=== PATIENT | female | born 1990 | race Caucasian/White ===

== ENCOUNTER 2021-12-25 16:41 | Outpatient (REF) | payer MEDICAID, SELFPAY ==
[2021-12-26 15:09] LABS: Chlamydia Result Negative (Negative); GC Result Negative (Negative)
== END 2021-12-25 16:42 | disposition home or self-care (01) ==
LOC: LBN 16:41
PROVIDERS: Visit Provider Obstetrics & Gynecology Gynecology
DX: R10.2 Pelvic and perineal pain (principal); Z11.3 Encounter for screening for infections with a predominantly sexual mode of transmission
CPT/HCPCS: 87491; 87591

== ENCOUNTER 2022-02-17 02:40 | Outpatient (CLI) | payer MEDICAID, SELFPAY ==
[2022-02-17 10:01] LABS: Source Nasal/Nares
[2022-02-17 10:57] LABS: HCT 43.5 % (36.0-46.0); HGB 14.8 g/dL (11.2-15.7); MCH 31.7 pg (27.0-33.0); MCV 93 fL (80-95); MPV 9.9 fL (8.0-11.0); Platelet Count 239 10^3/uL (130-400); RBC 4.67 10^6/uL (3.93-5.22); RDW 12.8 % (11.7-14.6); WBC 8.04 10^3/uL (4.4-10.8)
[2022-02-17 11:25] LABS: HCG Qual (Serum) Negative
[2022-02-17 11:33] LABS: ALT 31 U/L (14-59); AST 14 U/L (15-37); Albumin 3.9 g/dL (3.4-5.0); Alkaline Phosphatase 134 U/L (46-116); Anion Gap 11.4 mmol/L (3-11); BUN 14 mg/dL (7-18); Bilirubin, Total 0.2 mg/dL (0.2-1.0); CO2 26.6 mmol/L (21.0-32.0); CREATININE 0.8 mg/dL (0.55-1.02); Chloride 105 mmol/L (98-107); Glucose 106 mg/dL (74-106); Potassium 4.4 mmol/L (3.5-5.1); Sodium 143 mmol/L (136-145)
[2022-02-17 15:42] LABS: COVID-19 PCR Negative (Negative)
== END 2022-02-17 02:41 | disposition home or self-care (01) ==
LOC: LBO 02:40
PROVIDERS: Visit Provider Obstetrics & Gynecology Gynecology
DX: R10.2 Pelvic and perineal pain (principal); N94.19 Other specified dyspareunia; Z20.822 Contact with and (suspected) exposure to COVID-19; Z01.818 Encounter for other preprocedural examination; Z01.812 Encounter for preprocedural laboratory examination
CPT/HCPCS: 36415; 80053; 85027; 86850; 86900; 86901; 87635; 84703

== ENCOUNTER 2022-02-17 03:11 | Outpatient (CLI) | payer MEDICAID, SELFPAY | END 2022-02-17 03:12 | disposition home or self-care (01) | LOC: LBO 03:11 | PROVIDERS: Visit Provider Obstetrics & Gynecology Gynecology ==

== ENCOUNTER 2022-02-19 10:27 | Observation (INO) | payer MEDICAID, SELFPAY ==
[2022-02-19] VITALS (12 sets, daily range): BP systolic 85–128; BP diastolic 49–82; PULSE 77–97; RESP 11–20; TEMP 36.1–36.7; O2SAT 96–100; BMI 26.6
[2022-02-19] MEDS: Lactated Ringers 1,000 ML 125 ML IV ×2 (06:49→12:02)
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
[2022-02-19] MEDS: ceFAZolin 2 GM/50 ML BAG IVPB (07:46)
[2022-02-19] MEDS: Lidocaine 1% Multi-Dose W/EPI 1/100,000 50 ML VIAL (08:00)
--- NOTE | 2022-02-19 08:20 | UTER_PTH ---
PATIENT: Colten Paiz LOC: U#:[id number] AGE/SX: 31/F ROOM: RE02/19/[address]: Lizett Person : 1990 BED: A DIS: 02/19/2022 SPEC #: [id number] RECD: 02/19/22 12:58 STATUS: LINDA REQ #: [id number] CRISTOBAL: 02/19/22 08:[address]: Lizett Person DEPT: Surgical Specimen RECD BY: Bryanna Rubio ENTERED: 02/19/22 12:59 SP TYPE: UTER OTHR DR: Unknown,Unknown Tissues: 1 - SOFT TISSUE MISC (INC. LIPOMA) 2 - FALLOPIAN TUBE (OTHER) 3 - UTERUS W OR W/O OVARIES(NOT TUMOR/PROLAPSE) Procedures: GROSS AND MICRO LEVEL 4 GROSS AND MICRO LEVEL 5 Comments: [id number]
[2022-02-19 08:47] LABS: Bilirubin Negative (Negative); Blood Negative (Negative); Clarity Clear (Clear); Glucose Negative (Negative); Ketones Negative (Negative); Leukocyte Esterase Negative (Negative); Nitrite Negative (Negative); Urobilinogen 0.2 EU/dL (Up TO 0.2)
[2022-02-19 09:03] LABS: *AMPHETAMINES SCREEN URINE Negative (Negative); *BARBITURATES SCREEN URINE Negative (Negative); *BENZODIAZEPINES SCREEN URINE Negative (Negative); Cannabinoids THC Positive (Negative); Cocaine Screen,Urine Positive (Negative); METHADONE URINE SCREEN Negative (Negative); OPIATES URINE SCREEN Negative (Negative)
[2022-02-19 09:04] LABS: Tricyclic Antidepressants Negative (Negative)
[2022-02-19] MEDS: Cellulose,Oxidized 4X8 1 PACKET MC (10:15)
[2022-02-19] MEDS: Cellulose,Oxidized 2X3 PKT 1 EACH MC (10:15)
--- NOTE | 2022-02-19 12:38 | W.ANESPOSTOP ---
Postoperative Evaluation Date, Time and Location Date Performed: 02/19/22 Time Performed: 11:15 Patient Location: PACU Vital Signs Most Recent Imported Vital Signs: Most Recent Vital Signs Temp Pulse Resp BP Pulse Ox 36.7 C 83 16 106/75 100 02/19/22 12:00 02/19/22 12:00 02/19/22 12:00 02/19/22 12:00 02/19/22 12:00 Pain Score Most Recent Pain Score: Most Recent Pain Score Pain Level 0 02/19/22 12:00 Assessment Mental Status: Awake (Alert & Oriented to Patient Baseline) Airway and Respiratory Function: Patent airway with normal (patient baseline) respiratory exam Cardiovascular Function: Hemodynamically Stable Hydration Status: Adequately Hydrated Nausea & Vomiting: No Nausea or Vomiting Pain: Pt. Denies Any Pain Peripheral Nerve Block: Patient did not receive a nerve block Postoperative Comments:: Intrathecal narcotics
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
--- NOTE | 2022-02-19 17:20 | W.PM.PROGNOT ---
Date of Service Date of service: 02/19/22 Time of Service: 16:20 Subjective Subjective Interval history since last seen: Patient underwent a laparoscopic-assisted vaginal hysterectomy with bladder cystoscopy this morning. In the preop holding area patient seemed somnolent but arousable. A urine drug screen was performed after she was catheterized in the OR. The results returned with cocaine and marijuana. No opioids noted. Surgery was uncomplicated she was transferred to the medical surgical floor after recovery in PACU. I spoke to her briefly after her arrival on [facility] unit regarding her desire for tobacco use. I declined to have her leave the unit to smoke and offered her nicotine cartridge for inhalation during her hospitalization. Patient denied pain. Early in the afternoon I received a call from medical surgical floor that the patient had signed out AMA stating that she needed to go home and take care of her children. Tello catheter was discontinued prior to her discharge she did not void prior to leaving. I have a was removed by the staff. All the patient at home and discussed activity precautions including no lifting over 10 pounds, nothing in the vagina for 6 weeks and requested that she keep her postop appointment with me on 03/03/2022. She agreed to the postop visit. I prescribed 10 Percocet tablets for postop pain that were called into [facility] in [place]. Objective Last Vital Signs Temp 97.0 F L 02/19/22 15:00 Pulse 97 H 02/19/22 15:00 Resp 17 02/19/22 15:00 BP 128/82 02/19/22 15:00 Pulse Ox 100 02/19/22 15:00 Laboratory Results - last 24 hr 02/19/22 02/19/22 08:00 08:00 Urine Color Yellow Urine Clarity Clear Urine pH 6.0 Ur Specific [place] 1.020 Urine Protein Negative Urine Ketones Negative Urine Blood Negative Urine Nitrite Negative Urine Bilirubin Negative Urine Urobilinogen 0.2 Ur Leukocyte Esterase Negative Urine Glucose Negative Urine Opiates Screen Negative Urine Methadone Screen Negative Ur Barbiturates Screen Negative Ur Tricyclics Screen Negative Ur Amphetamines Screen Negative U Benzodiazepines Scrn Negative Urine Cocaine Screen Positive A Ur THC Screen Positive A
== END 2022-02-19 15:43 | disposition left against medical advice (07) ==
LOC: MS 11:32
PROVIDERS: Admitting Provider Obstetrics & Gynecology Gynecology; Visit Provider Obstetrics & Gynecology Gynecology
PROC: 0UT9FZZ Resection of Uterus, Via Natural or Artificial Opening With Percutaneous Endoscopic Assistance (ICD-10-PCS; CPT 58552; principal; 2022-02-19 07:30)
DX: N87.1 Moderate cervical dysplasia; N94.12 Deep dyspareunia; R10.2 Pelvic and perineal pain; F17.210 Nicotine dependence, cigarettes, uncomplicated; K21.9 Gastro-esophageal reflux disease without esophagitis; F32.A Depression, unspecified; J45.909 Unspecified asthma, uncomplicated
CPT/HCPCS: 58552; 52000; 80307; 88305; 81003; 88304; 88307; J0690; J1100; J1885; J2250; J2405; J3010

== ENCOUNTER 2022-02-21 23:35 | Inpatient (IN) | payer MEDICAID, SELFPAY ==
--- NOTE | 2022-02-21 23:30 | DI.CT_ITS ---
Exam(s) CT ABDOMEN PELVIS WO EXAM: CT ABDOMEN PELVIS WO CLINICAL HISTORY: post-hysto 2 days ago, now abdominal pain. TECHNIQUE: Imaging Protocol: Axial computed tomography images with coronal and sagittal reformatted images were created and reviewed. COMPARISON: No exams were available for comparison FINDINGS: ABDOMEN: Lung Bases: Normal where visualized. Liver: Normal density. No measurable mass. The liver measures 17 cm long. Gallbladder and biliary tract: No radiodense calculus or biliary ductal dilation. Pancreas: Normal density, no abnormal calcifications or inflammatory process. Spleen: Normal. Kidneys: Normal size, contour and axis.No radiodense stones or obstructive uropathy. No masses seen. Adrenal glands: No mass is seen. Lymph nodes: Within normal limits. Abdominal Aorta: Abdominal portion non-dilated. Mild atherosclerosis. PELVIS: Bladder:Symmetric distention, no gross wall thickening. Bowel: There is mild wall thickening of a loop of sigmoid colon adjacent to the postsurgical changes in the pelvis. There also appears to be mild wall thickening in loops of adjacent small bowel. This may be reactive secondary to the recent hysterectomy. No evidence of appendicitis. Peritoneal cavity: There are few tiny foci of free air beneath the anterior abdominal wall may be pos tsurgical. There is also air and fluid collection seen in the surgical bed in the pelvis. This may represent an early abscess formation. There is stranding in the mesentery in the pelvis. Reproductive organs: Status post hysterectomy. Bones: Within normal limits. Soft Tissues: There is a small fat containing umbilical hernia. IMPRESSION: 1. Status post hysterectomy. 2. Air in fluid collection seen in the surgical bed in the pelvis. This may represent an early absce ss formation. 3. Mild bowel wall thickening in the small bowel and sigmoid colon adjacent to the surgical bed with adjacent inflammatory changes suspicious for an enteritis and colitis. 4. A few scattered foci of intraperitoneal air which are likely postoperative. RADIATION DOSE DELIVERED: 719.07mGy.cm Total DLP DATA REPOSITORY: All CT scans at this facility are submitted to the National Radiology Data Registry (NRDR) Dose Index Registry (DIR) with the [employer] (A[employer]). RADIATION OPTIMIZATION: All CT scans at this facility use at least one of these dose optimization te chniques: automated exposure control; mA and/or kV adjustment per patient size (includes targeted exa ms where dose is matched to clinical indication); or iterative reconstruction.
[2022-02-21 23:38] VITALS: BP 132/81; PULSE 132; RESP 18; TEMP 36.7
[2022-02-22] VITALS (7 sets, daily range): BP systolic 100–130; BP diastolic 44–79; PULSE 87–133; RESP 16–20; TEMP 35.9–37.7; O2SAT 96–100
[2022-02-22] MEDS: Normal Saline 1,000 ML 1000 ML IV ×2 (00:11→01:04)
[2022-02-22] MEDS: Ondansetron 4 MG/2 ML VIAL IVP (00:11)
[2022-02-22] MEDS: MORPHine 4 MG/ML SYR IVP (00:11)
[2022-02-22 00:24] LABS: Abs Immature Grans 0.22 10^3/uL (0.0-0.06); Absolute Lymphocyte Count 1.16 10^3/uL (1.2-3.4); HCT 40.1 % (36.0-46.0); HGB 14.3 g/dL (11.2-15.7); MCH 32.2 pg (27.0-33.0); MCHC 35.7 % (32.0-36.0); MCV 90 fL (80-95); Platelet Count 272 10^3/uL (130-400); RBC 4.44 10^6/uL (3.93-5.22); RDW 12.4 % (11.7-14.6); RDW-SD 40.9 fL; WBC 23.29 10^3/uL (4.4-10.8)
[2022-02-22 00:34] LABS: ALT 19 U/L (14-59); AST 8 U/L (15-37); Albumin 3.9 g/dL (3.4-5.0); Alkaline Phosphatase 114 U/L (46-116); Anion Gap 16.6 mmol/L (3-11); BUN 11 mg/dL (7-18); Bilirubin, Total 0.8 mg/dL (0.2-1.0); CO2 19.4 mmol/L (21.0-32.0); Calcium 9.3 mg/dL (8.5-10.1); Chloride 103 mmol/L (98-107); Glucose 102 mg/dL (74-106); Lipase 101 U/L (73-393); Potassium 3.7 mmol/L (3.5-5.1); Sodium 139 mmol/L (136-145); Total Protein 7.3 g/dL (6.4-8.2)
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
[2022-02-22 01:01] LABS: Bilirubin Negative (Negative); Blood Large (Negative); Clarity Sl Cloudy (Clear); Glucose Negative (Negative); Ketones Negative (Negative); Leukocyte Esterase Negative (Negative); Nitrite Negative (Negative); Urobilinogen 0.2 EU/dL (Up TO 0.2); pH 8.5 (5-8)
[2022-02-22 01:20] LABS: Absolute Monocyte Count 0.47 10^3/uL (0.1-0.8); Absolute Neutrophil Count 21.66 10^3/uL (1.2-6.7); Bands % 16
[2022-02-22 01:21] LABS: Diff Comment Manual Differential; RBC Morphology Normal
--- NOTE | 2022-02-22 01:28 | DI.VRAD_ITS ---
Addendum created by Mark Richter MD on 02/22/2022 1:31:38 AM EDT: Findings were discussed with STEVE MOSLEY at 02/22/2022 1:31 AM EDT. Initial report created on 02/22/2022 1:27:35 AM EDT: PROCEDURE INFORMATION: Exam: CT Abdomen And Pelvis Without Contrast Exam date and time: 02/22/2022 12:52 AM Age: 31 years old Clinical indication: Other: Post-hysto 2 days and now abdominal pain TECHNIQUE: Imaging protocol: Computed tomography of the abdomen and pelvis without contrast. COMPARISON: No relevant prior studies available. FINDINGS: Lungs: Lung bases are clear. Liver: Unremarkable noncontrast liver imaging. Gallbladder and bile ducts: Normal. No calcified stones. No ductal dilation. Pancreas: Normal. No ductal dilation. Spleen: Normal. No splenomegaly. Adrenal glands: Normal. No mass. Kidneys and ureters: No hydronephrosis. Nondilated ureters. No stones observed in the ureters. Stomach and bowel: Unremarkable stomach. Nondilated small bowel. Moderate fluid noted in distal small bowel. Fat planes around loops of bowel are indistinct. Ascending, transverse, and descending colon appear normal. Loops of the sigmoid colon are inflamed adjacent to the pelvic fluid collection. Rectum is collapsed and unremarkable. Appendix: No evidence of appendicitis. Intraperitoneal space: Foci of free air are present in the anterior peritoneal cavity, inferior to the umbilicus. Free fluid and complex collection with fat stranding are again noted in the pelvis. There is no fluid accumulation in the upper abdomen. Vasculature: Unremarkable. No abdominal aortic aneurysm. Lymph nodes: Central mesenteric lymphadenopathy and fat stranding are observed. Negative for suspicious retroperitoneal lymphadenopathy. Urinary bladder: Normal. Perez are thin. No stones observed in the bladder. Homogeneous attenuation. Reproductive: Uterus is surgically absent. A complex fluid collection is present at the vaginal cuff, containing air and debris. Additional foci free air are present in the adjacent pelvis. The collection measures 4.9 x 4.8 x 2.3 cm. Additional posterior fluid and moderate fat stranding are noted around the surgical site. Bones/joints: Unremarkable. No acute fracture. Soft tissues: Small periumbilical hernia contains fat. Fat stranding is also noted around the umbilicus; correlate for laparoscopic port. No dehiscence. No fluid collections in the abdominal wall. IMPRESSION: 1. Loculated air and fluid collection at the vaginal cuff. Early abscess formation considered. 2. Adjacent inflammatory changes around the sigmoid colon. Correlate for any concern of injury to the sigmoid colon. 3. Scattered foci intraperitoneal free air, likely postoperative. 4. Additional mesenteric lymphadenopathy and inflammatory changes in the small bowel, suggesting enteritis, separate from the postoperative pelvic pathology. Dictated and Authenticated by: Mark Richter MD. Ordering:GABBY Baker MD
[2022-02-22 01:39] LABS: Bacteria Few HPF (Negative); C & S Indicated? No/Sq. Contamination; Crystals Negative HPF (Negative); Epithelial Cells Many HPF (Negative); Mucus Negative (Negative)
[2022-02-22 02:00] LABS: Procalcitonin 0.2 ng/mL
[2022-02-22] MEDS: PIPERACILLIN/TAZO 4.5 GM in Normal Saline 100 ML IVPB (02:02)
[2022-02-22 02:09] LABS: Source Nasal/Nares
[2022-02-22] MEDS: Lidocaine 2% Viscous 15 ML CUP PO (02:45)
[2022-02-22] MEDS: Milk of Magnesia 30 ML CUP PO (02:45)
[2022-02-22 02:58] LABS: COVID-19 PCR Negative (Negative)
[2022-02-22] MEDS: Normal Saline Flush 10 ML SYR IVP ×2 (03:48→08:11)
[2022-02-22] MEDS: MORPHine 2 MG/ML SYR 4 MG IVP (08:10)
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
[2022-02-22] MEDS: PIPERACILLIN/TAZO 3.375 GM in Normal Saline 50 ML IVPB ×2 (11:38→17:56)
[2022-02-22] MEDS: oxyCODONE 5 mg/Acetaminophen 325 mg TAB 1 TAB PO ×2 (14:00→21:00)
[2022-02-22] MEDS: Famotidine 20 MG TAB PO ×2 (14:50→20:57)
[2022-02-22] MEDS: Venlafaxine 150 MG CAPCR PO (20:57)
[2022-02-22] MEDS: Gabapentin 400 MG CAP PO (20:57)
[2022-02-23] VITALS: BP 112/69; PULSE 88; RESP 18; TEMP 36.1
[2022-02-23] MEDS: PIPERACILLIN/TAZO 3.375 GM in Normal Saline 50 ML IVPB ×3 (00:26→12:02)
[2022-02-23] MEDS: oxyCODONE 5 mg/Acetaminophen 325 mg TAB 1 TAB PO ×4 (02:34→16:21)
[2022-02-23 06:09] VITALS: BP 106/66; PULSE 85; RESP 18; TEMP 37.2
[2022-02-23] MEDS: Normal Saline 1,000 ML 30 ML IV (06:13)
[2022-02-23 07:27] LABS: HCT 34.4 % (36.0-46.0); HGB 11.6 g/dL (11.2-15.7); MCH 31.9 pg (27.0-33.0); MCHC 33.7 % (32.0-36.0); MCV 95 fL (80-95); MPV 10.2 fL (8.0-11.0); Platelet Count 195 10^3/uL (130-400); RBC 3.64 10^6/uL (3.93-5.22); RDW-SD 45.3 fL; WBC 12.23 10^3/uL (4.4-10.8)
[2022-02-23 07:41] VITALS: BP 104/65; PULSE 84; RESP 14; TEMP 36.9
[2022-02-23] MEDS: lamoTRIgine 100 MG TAB 150 MG PO (08:27)
[2022-02-23] MEDS: Venlafaxine 150 MG CAPCR PO (08:27)
[2022-02-23] MEDS: Gabapentin 400 MG CAP PO (08:28)
[2022-02-23] MEDS: Famotidine 20 MG TAB PO (08:29)
[2022-02-23 14:15] VITALS: BP 113/67; PULSE 91; RESP 16; TEMP 36.6; O2SAT 97
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
[2022-02-23] MEDS: Sulfameth/Trimeth DS TAB 1 TAB PO (16:21)
[2022-02-23] MEDS: Docusate Sodium 100 MG CAP PO (16:21)
--- NOTE | 2022-02-23 16:26 | W.PM.PROGNOT ---
Date of Service Date of service: 02/23/22 Time of Service: 15:26 Assessment and Plan Assessment and plan (1) Postoperative abscess: Status: Acute Assessment and plan: Discharge home with PO abx for 14 days. She has some percocet left from prior post-op prescription. Continue with avoiding heavy lifting or core exercises. Given colace for stool softener. Needs f/u visit in 1wk. Subjective Subjective Interval history since last seen: Pt is feeling much better and desires discharge to home. She has taken periodic percocet for pain but it is much improved. She had not had a BM since being here but is passing gas. She is eating without nausea. Exam Const General: cooperative, no acute distress and disheveled Orientation: alert, awake and oriented x3 HENMT Head: normocephalic and atraumatic Resp Effort & Inspection: normal respiratory effort and able to speak in complete sentences Cardio Rate: tachycardic GI Inspection: incision (covered with bandaids, clean and dry) Palpation: soft and tender (very mild pelvic tenderness) Extrem Right lower extremity: no edema Left lower extremity: no edema Other: No calf tenderness Objective Last Vital Signs Temp 98 F 02/23/22 14:15 Pulse 91 H 02/23/22 14:15 Resp 16 02/23/22 14:15 BP 113/67 02/23/22 14:15 Pulse Ox 97 02/23/22 14:15 Laboratory Results - last 24 hr 02/23/22 06:00 WBC 12.23 H RBC 3.64 L Hgb 11.6 D Hct 34.4 L MCV 95 D MCH 31.9 MCHC 33.7 D RDW 13.0 Plt Count 195 MPV 10.2 PAWSS Have you Been Recently Intoxicated or Drunk Within the Last 30 days?: No Have you Ever Experienced Previous Episodes of Alcohol Withdrawal?: No Have you ever Experienced Withdrawal Seizures?: No Have you ever Experienced Delirium Tremens(DT)s?: No Have you ever undergone Alcohol Rehabilitation Treatment (i.e, inpt ot outpatient treatment programs)?: No Have you ever Experienced Blackouts?: No Have you ever Combined Alcohol with other Downers within the last 90 days?: No Have you ever Combined Alcohol with any other Substance of Abuse during the last 90 days?: No Positive Blood Alcohol level on Presentation? [PCS.BAL]: No Evidence of Increased Autonomic Activity (i.e. HR>120, tremor, sweating, agitation, nausea)?: No Result: 0
== END 2022-02-23 16:39 | disposition home or self-care (01) | DRG 863 ==
LOC: ER 02-22 02:10 → OBS 02-23 07:44
PROVIDERS: Admitting Provider Obstetrics & Gynecology; Emergency Provider Student in an Organized Health Care Education/Training Program; Visit Provider Obstetrics & Gynecology
DX: T81.42XA Infection following a procedure, deep incisional surgical site, initial encounter (principal); N73.0 Acute parametritis and pelvic cellulitis; J45.909 Unspecified asthma, uncomplicated; F32.A Depression, unspecified; K21.9 Gastro-esophageal reflux disease without esophagitis; Z90.710 Acquired absence of both cervix and uterus; Z91.410 Personal history of adult physical and sexual abuse; F17.210 Nicotine dependence, cigarettes, uncomplicated; F12.90 Cannabis use, unspecified, uncomplicated
CPT/HCPCS: 80053; 83690; 84145; 85027; 87040; 87077; 87635; 96361; 96365; 96375; 99285; 74176; 81003; 81015; 85025; J2270; J2405; J2543